=== PATIENT | male | born 1955 | race African-American/Black ===

== ENCOUNTER 2021-10-13 21:51 | Inpatient (IN) | payer MEDICARE, OTHER ==
[2021-10-13] MEDS ORDERED: ASPIRIN 81 MG CHEWABLE TABLETS PO ONE (23:23)
[2021-10-13 23:24] LABS: ALBUMIN 3.3 g/dl (3.4-5.0); CALCIUM 8.8 mg/dL (8.5-10.1)
[2021-10-13 23:26] LABS: BASO % 0.8 % (0-2.0); EOS % 0.8 % (0-4.5); HEMATOCRIT 39.1 % (35.4-49); HEMOGLOBIN 12.6 GM/dL (11.7-16.9); LYMPH % 25.7 % (8-40); MCH 22.1 pg (25.7-33.7); MCHC 32.3 g/dl (32.0-35.9); MEAN CELL VOLUME 68.6 fl (80-96); MONO % 6.3 % (3.8-10.2); NEUT % 66.4 % (42.8-82.8); RDW 19.8 % (11.9-15.9); WHITE BLOOD COUNT 8.7 K/mm3 (4.0-10.0)
[2021-10-13 23:27] LABS: INR 1.24 (0.83-1.09); PROTHROMBIN TIME (PATIENT) 14.3 SEC (9.7-13.0)
[2021-10-13 23:28] LABS: CREATININE 1.4 mg/dL (0.55-1.3)
[2021-10-13 23:29] LABS: ACTIVATED PTT 32.7 SECONDS (25.2-36.5); BILIRUBIN,TOTAL 0.4 mg/dL (0.2-1); TOT PROT 6.7 g/dl (6.4-8.2)
[2021-10-13] MEDS: SODIUM CHLORIDE 1,000 ML IV SCH (23:49)
[2021-10-13 23:51] LABS: LACTIC ACID 4.6 mmol/L (0.4-2.0)
[2021-10-13 23:54] LABS: ADD RBC MORPHOLOGY YES
[2021-10-13 23:56] LABS: PLATELET ESTIMATE NORMAL
[2021-10-14 00:10] LABS: ANISOCYTOSIS 1+; MACROCYTOSIS 0
[2021-10-14 01:02] LABS: MEAN PLT VOLUME 9.7 fl (7.5-11.1); PLATELET COUNT 156 10^3/uL (134-434)
[2021-10-14] MEDS: DEXTROSE 5%-0.45% SALINE 1,000 ML IV SCH ×2 (05:00→21:55)
[2021-10-14 05:28] LABS: EPI CELLS 6 /uL (0-25.1); HYALINE CASTS 1 /uL (0-3.1); PH,URINE 7.5 (5.0-8.0); URINE APPEARANCE CLEAR; URINE BACTERIA 0 /uL (0-1359); URINE BILIRUBIN NEGATIVE (NEGATIVE); URINE COLOR YELLOW; URINE GLUCOSE (UA) NEGATIVE (NEGATIVE); URINE KETONE NEGATIVE (NEGATIVE); URINE LEUK ESTERASE NEGATIVE (NEGATIVE); URINE NITRITE NEGATIVE (NEGATIVE); URINE PROTEIN TRACE (NEGATIVE); URINE RBC 4 /uL (0-23.9); URINE WBC 5 /uL (0-25.8)
[2021-10-14 06:28] LABS: ALBUMIN 3.2 g/dl (3.4-5.0); BLOOD UREA NITROGEN 17.8 mg/dL (7-18); CALCIUM 8.7 mg/dL (8.5-10.1)
[2021-10-14 06:31] LABS: CREATININE 1.2 mg/dL (0.55-1.3)
[2021-10-14 06:33] LABS: BILIRUBIN,TOTAL 0.4 mg/dL (0.2-1); TOT PROT 6.7 g/dl (6.4-8.2)
[2021-10-14 06:34] LABS: BASO % 0.8 % (0-2.0); EOS % 0.3 % (0-4.5); HEMATOCRIT 37.8 % (35.4-49); HEMOGLOBIN 12.4 GM/dL (11.7-16.9); LYMPH % 22.6 % (8-40); MCH 22.4 pg (25.7-33.7); MCHC 32.7 g/dl (32.0-35.9); MEAN CELL VOLUME 68.3 fl (80-96); MEAN PLT VOLUME 10.3 fl (7.5-11.1); MONO % 6.1 % (3.8-10.2); NEUT % 70.2 % (42.8-82.8); PLATELET COUNT 166 10^3/uL (134-434); RBC 5.54 M/mm3 (4.00-5.60); WHITE BLOOD COUNT 8.5 K/mm3 (4.0-10.0)
[2021-10-14] MEDS: ASPIRIN 81 MG CHEWABLE TABLETS PO SCH (10:35)
[2021-10-14] MEDS: HEPARIN NA (PORCINE) 5,000 UNITS/ML 1ML VIAL SQ SCH ×2 (10:35→21:57)
[2021-10-14 12:12] VITALS: BMI 25.5
[2021-10-14] MEDS: ATORVASTATIN CA 20 MG TABLET (FP) PO SCH (21:58)
[2021-10-15 07:43] LABS: BASO % 0.8 % (0-2.0); EOS % 2.6 % (0-4.5); HEMATOCRIT 39.3 % (35.4-49); HEMOGLOBIN 12.4 GM/dL (11.7-16.9); LYMPH % 30.8 % (8-40); MCH 21.9 pg (25.7-33.7); MCHC 31.5 g/dl (32.0-35.9); MEAN CELL VOLUME 69.7 fl (80-96); MEAN PLT VOLUME 10.8 fl (7.5-11.1); MONO % 8.5 % (3.8-10.2); NEUT % 57.3 % (42.8-82.8); PLATELET COUNT 165 10^3/uL (134-434); RBC 5.64 M/mm3 (4.00-5.60); RDW 20.9 % (11.9-15.9); WHITE BLOOD COUNT 8.6 K/mm3 (4.0-10.0)
[2021-10-15 08:08] LABS: BLOOD UREA NITROGEN 15.2 mg/dL (7-18); CALCIUM 8.8 mg/dL (8.5-10.1)
[2021-10-15 08:11] LABS: CREATININE 1.2 mg/dL (0.55-1.3)
[2021-10-15 08:12] LABS: TOT PROT 6.2 g/dl (6.4-8.2)
[2021-10-15 08:13] LABS: BILIRUBIN,TOTAL 0.3 mg/dL (0.2-1)
[2021-10-15] MEDS: ASPIRIN 81 MG CHEWABLE TABLETS PO SCH (09:59)
[2021-10-15] MEDS: HEPARIN NA (PORCINE) 5,000 UNITS/ML 1ML VIAL SQ SCH ×2 (10:00→21:24)
[2021-10-15] MEDS: DEXTROSE 5%-0.45% SALINE 1,000 ML IV SCH (10:01)
[2021-10-15] MEDS: SODIUM CHLORIDE 1,000 ML IV SCH (21:23)
[2021-10-15] MEDS: ATORVASTATIN CA 20 MG TABLET (FP) PO SCH (21:24)
[2021-10-16] MEDS: ASPIRIN 81 MG CHEWABLE TABLETS PO SCH (11:16)
[2021-10-16] MEDS: HEPARIN NA (PORCINE) 5,000 UNITS/ML 1ML VIAL SQ SCH (11:17)
[2021-10-16] MEDS: DEXTROSE 5%-0.45% SALINE 1,000 ML IV SCH (12:27)
[2021-10-16] MEDS: APIXABAN 5 MG TABLET PO SCH (22:21)
[2021-10-16] MEDS: ATORVASTATIN CA 20 MG TABLET (FP) PO SCH (22:21)
[2021-10-16] MEDS: SACUBITRIL/VALSARTAN 24 MG-26 MG TABLET PO SCH (22:21)
[2021-10-16] MEDS: SODIUM CHLORIDE 1,000 ML IV SCH (22:23)
[2021-10-17] MEDS: APIXABAN 5 MG TABLET PO SCH ×2 (10:30→22:32)
[2021-10-17] MEDS: SACUBITRIL/VALSARTAN 24 MG-26 MG TABLET PO SCH ×2 (10:44→22:32)
[2021-10-17] MEDS: metoPROLOL SUCCINATE 25 MG TAB.SR.24H (FP) PO SCH (10:44)
[2021-10-17] MEDS: ATORVASTATIN CA 20 MG TABLET (FP) PO SCH (22:32)
[2021-10-17] MEDS: SODIUM CHLORIDE 1,000 ML IV SCH (22:34)
[2021-10-18] MEDS: metoPROLOL SUCCINATE 25 MG TAB.SR.24H (FP) PO SCH (09:58)
[2021-10-18] MEDS: APIXABAN 5 MG TABLET PO SCH ×2 (09:59→22:03)
[2021-10-18] MEDS: SACUBITRIL/VALSARTAN 24 MG-26 MG TABLET PO SCH ×2 (09:59→22:03)
[2021-10-18] MEDS: SPIRONOLACTONE 25 MG TABLET PO SCH (12:04)
[2021-10-18] MEDS: SODIUM CHLORIDE 1,000 ML IV SCH (22:03)
[2021-10-18] MEDS: ATORVASTATIN CA 20 MG TABLET (FP) PO SCH (22:03)
[2021-10-19 09:33] LABS: BASO % 0.9 % (0-2.0); EOS % 5.3 % (0-4.5); HEMATOCRIT 39.8 % (35.4-49); HEMOGLOBIN 12.6 GM/dL (11.7-16.9); LYMPH % 29.7 % (8-40); MCH 21.9 pg (25.7-33.7); MCHC 31.6 g/dl (32.0-35.9); MEAN CELL VOLUME 69.3 fl (80-96); MEAN PLT VOLUME 10.8 fl (7.5-11.1); MONO % 6.9 % (3.8-10.2); NEUT % 57.2 % (42.8-82.8); PLATELET COUNT 192 10^3/uL (134-434); RBC 5.75 M/mm3 (4.00-5.60); RDW 20.6 % (11.9-15.9); WHITE BLOOD COUNT 8.5 K/mm3 (4.0-10.0)
[2021-10-19 09:57] LABS: CALCIUM 8.6 mg/dL (8.5-10.1)
[2021-10-19 09:58] LABS: BLOOD UREA NITROGEN 13.3 mg/dL (7-18)
[2021-10-19 10:01] LABS: CREATININE 1.1 mg/dL (0.55-1.3)
[2021-10-19 10:27] LABS: ANISOCYTOSIS 2+; MACROCYTOSIS 0; TARGET CELLS 2+
[2021-10-19] MEDS: SPIRONOLACTONE 25 MG TABLET PO SCH (10:37)
[2021-10-19] MEDS: metoPROLOL SUCCINATE 25 MG TAB.SR.24H (FP) PO SCH (10:37)
[2021-10-19] MEDS: APIXABAN 5 MG TABLET PO SCH (10:38)
[2021-10-19] MEDS: SACUBITRIL/VALSARTAN 24 MG-26 MG TABLET PO SCH (10:38)
[2021-10-19 14:16] VITALS: BP 116/77; PULSE 66; TEMP 98.5
== END 2021-10-19 14:17 | disposition home health service (06) | DRG 65 ==
LOC: JER 21:51 → JERBED 23:31 → J4W 10-14 06:47
PROVIDERS: ADMIT Internal Medicine; ATTEND Internal Medicine
DX: I63.89 Other cerebral infarction (principal); I69.354 Hemiplegia and hemiparesis following cerebral infarction affecting left non-dominant side; E87.2 Acidosis; I50.22 Chronic systolic (congestive) heart failure; N17.9 Acute kidney failure, unspecified; I69.351 Hemiplegia and hemiparesis following cerebral infarction affecting right dominant side; R29.714 NIHSS score 14; R41.82 Altered mental status, unspecified; E78.5 Hyperlipidemia, unspecified; I48.0 Paroxysmal atrial fibrillation; I25.119 Atherosclerotic heart disease of native coronary artery with unspecified angina pectoris; E11.9 Type 2 diabetes mellitus without complications; I11.0 Hypertensive heart disease with heart failure; F41.8 Other specified anxiety disorders; Z95.0 Presence of cardiac pacemaker
CPT/HCPCS: 0241U-QW; 36415; 70450-TC; 70496-TC; 70498-TC; 71045-TC-FY; 80048; 80053; 80061; 81003; 82550; 83036; 83605; 83880; 84443; 84484; 85025; 85610; 85730; 86850; 86900; 86901; 87086; 93005; 93010; 93306-TC; 93880-TC; 97116-GP; 97161-GP; 99291; J1644

== ENCOUNTER 2022-04-26 07:53 | Inpatient (IN) | payer MEDICARE, OTHER ==
[2022-04-26] MEDS ORDERED: SODIUM CHLORIDE 1,000 ML IV SCH (08:00)
[2022-04-26] MEDS ORDERED: LABETALOL HCL 5 MG/1 ML (100MG/20 ML VIAL) ONE (08:26)
[2022-04-26] MEDS ORDERED: LABETALOL HCL 5 MG/1 ML (100MG/20 ML VIAL) IVPUSH ONE (08:34)
[2022-04-26 09:20] LABS: BASO % 0.5 % (0-2.0); HEMATOCRIT 45.7 % (35.4-49); HEMOGLOBIN 14.6 GM/dL (11.7-16.9); LYMPH % 39.6 % (8-40); MEAN CELL VOLUME 75.1 fl (80-96); MEAN PLT VOLUME 10.5 fl (7.5-11.1); MONO % 8.9 % (3.8-10.2); PLATELET COUNT 229 10^3/uL (134-434); RBC 6.08 M/mm3 (4.00-5.60); RDW 16.7 % (11.9-15.9); WHITE BLOOD COUNT 9.5 K/mm3 (4.0-10.0)
[2022-04-26 09:27] LABS: INR 1.14 (0.83-1.09); PROTHROMBIN TIME (PATIENT) 13.1 SEC (9.7-13.0)
[2022-04-26] MEDS ORDERED: ASPIRIN 300 MG SUPP.RECT PR ONE (09:28)
[2022-04-26] MEDS ORDERED: ASPIRIN 300 MG SUPP.RECT RC ONE (09:30)
[2022-04-26 09:49] LABS: CHLORIDE 109 mmol/L (98-107); SODIUM 140 mmol/L (136-145)
[2022-04-26 09:53] LABS: ALBUMIN 3.5 g/dl (3.4-5.0); CALCIUM 9.1 mg/dL (8.5-10.1); CO2 20 mmol/L (21-32)
[2022-04-26 09:56] LABS: CREATININE 1.7 mg/dL (0.55-1.3)
[2022-04-26 09:57] LABS: SGOT/AST 61 U/L (15-37); SGPT/ALT 22 U/L (13-61)
[2022-04-26 09:58] LABS: TOT PROT 7.2 g/dl (6.4-8.2)
[2022-04-26] MEDS ORDERED: SODIUM CHLORIDE 500 ML IV STA (10:06)
[2022-04-26 10:37] LABS: URINE APPEARANCE CLEAR; URINE BILIRUBIN NEGATIVE (NEGATIVE); URINE COLOR YELLOW; URINE GLUCOSE (UA) NEGATIVE (NEGATIVE); URINE KETONE TRACE (NEGATIVE)
[2022-04-26 10:38] LABS: PH,URINE 5.5 (5.0-8.0)
[2022-04-26 10:39] LABS: URINE LEUK ESTERASE NEGATIVE (NEGATIVE); URINE NITRITE NEGATIVE (NEGATIVE); URINE PROTEIN 2+ (NEGATIVE); URINE RBC 24 /uL (0-23.9); URINE UROBILINOGEN 0.2 mg/dL (0.2-1.0)
[2022-04-26 10:40] LABS: EPI CELLS 24 /uL (0-25.1); HYALINE CASTS 1 /uL (0-3.1); URINE BACTERIA 70 /uL (0-1359); URINE WBC 14 /uL (0-25.8)
[2022-04-26 11:36] LABS: ALK PHOS 72 U/L (45-117); BILIRUBIN,TOTAL 0.9 mg/dL (0.2-1); BLOOD UREA NITROGEN 20.5 mg/dL (7-18); CHOLESTEROL 137 mg/dL (50-200); GLUCOSE,RANDOM 147 mg/dL (74-106); HDL CHOLESTEROL 37 mg/dL (40-60); LDL CHOLESTEROL (ONLY SJRH) 87 mg/dL (5-100); TRIGLYCERIDES 109 mg/dL (0-150)
[2022-04-26 11:37] LABS: ANION GAP 11 MMOL/L (8-16)
[2022-04-26 12:45] LABS: CALCIUM 9.2 mg/dL (8.5-10.1)
[2022-04-26 12:50] LABS: CREATININE 1.6 mg/dL (0.55-1.3)
[2022-04-26] MEDS ORDERED: ACETAMINOPHEN 1000 MG/100 ML BAG IVPB ONE (16:30)
[2022-04-26] MEDS ORDERED: ACETAMINOPHEN INJECTION 100 ML IVPB ONE (16:33)
[2022-04-26] MEDS ORDERED: ALBUTEROL SO4 2.5/IPRATROPIUM 0.5 INH SOL 3 ML VIAL.NEB. NEB ONE ×2 (16:34→16:37)
[2022-04-26] MEDS ORDERED: METOPROLOL TARTRATE 5 MG/5 ML VIAL IVPUSH ONE (16:36)
[2022-04-26] MEDS ORDERED: METOPROLOL TARTRATE 5 MG/5 ML VIAL ONE (16:37)
[2022-04-26] MEDS ORDERED: ENOXAPARIN NA (PORCINE) 80 MG/0.8 ML DISP.SYRIN SQ ONE (18:02)
[2022-04-26] MEDS: DEXTROSE 5%-0.45% SALINE 1,000 ML IV SCH (18:12)
[2022-04-26] MEDS: ENOXAPARIN NA (PORCINE) 80 MG/0.8 ML DISP.SYRIN SQ SCH (18:12)
[2022-04-26] MEDS: PANTOPRAZOLE SODIUM 40 MG VIAL IVPUSH SCH (23:00)
[2022-04-27] MEDS ORDERED: PANTOPRAZOLE SODIUM 40 MG VIAL ONE ×2 (01:43→10:01)
[2022-04-27] MEDS ORDERED: metoPROLOL SUCCINATE 25 MG TAB.SR.24H (FP) PO ONE ×2 (08:30→08:56)
[2022-04-27] MEDS ORDERED: ENOXAPARIN NA (PORCINE) 80 MG/0.8 ML DISP.SYRIN SQ ONE (08:53)
[2022-04-27 09:39] LABS: BASO % 0.4 % (0-2.0); EOS % 0.2 % (0-4.5); HEMATOCRIT 44.5 % (35.4-49); HEMOGLOBIN 14.4 GM/dL (11.7-16.9); LYMPH % 18.9 % (8-40); MCH 24.2 pg (25.7-33.7); MCHC 32.3 g/dl (32.0-35.9); MEAN CELL VOLUME 75.1 fl (80-96); MEAN PLT VOLUME 10.7 fl (7.5-11.1); MONO % 11.2 % (3.8-10.2); NEUT % 69.3 % (42.8-82.8); PLATELET COUNT 219 10^3/uL (134-434); RBC 5.93 M/mm3 (4.00-5.60); RDW 16.4 % (11.9-15.9); WHITE BLOOD COUNT 13.8 K/mm3 (4.0-10.0)
[2022-04-27 09:59] LABS: ALBUMIN 3.6 g/dl (3.4-5.0); BLOOD UREA NITROGEN 19.5 mg/dL (7-18)
[2022-04-27 10:01] LABS: CALCIUM 9.1 mg/dL (8.5-10.1)
[2022-04-27 10:02] LABS: CREATININE 1.4 mg/dL (0.55-1.3)
[2022-04-27] MEDS ORDERED: ASPIRIN 300 MG SUPP.RECT RC ONE (10:02)
[2022-04-27 10:04] LABS: TOT PROT 6.9 g/dl (6.4-8.2)
[2022-04-27 10:05] LABS: BILIRUBIN,TOTAL 1.1 mg/dL (0.2-1)
[2022-04-27] MEDS: ENOXAPARIN NA (PORCINE) 80 MG/0.8 ML DISP.SYRIN SQ SCH ×2 (10:14→17:12)
[2022-04-27] MEDS: PANTOPRAZOLE SODIUM 40 MG VIAL IVPUSH SCH ×2 (10:15→21:40)
[2022-04-27] MEDS: ASPIRIN 300 MG SUPP.RECT RC SCH (10:15)
[2022-04-27] MEDS ORDERED: METOPROLOL TARTRATE 5 MG/5 ML VIAL IVPUSH ONE (15:49)
[2022-04-27] MEDS: ENALAPRILAT DIHYDRATE 1.25 MG/1 ML VIAL IVPB SCH (17:37)
[2022-04-27] MEDS: METOPROLOL TARTRATE 5 MG/5 ML VIAL IVPUSH SCH (21:37)
[2022-04-28] MEDS: ENALAPRILAT DIHYDRATE 1.25 MG/1 ML VIAL IVPB SCH ×4 (01:39→17:12)
[2022-04-28] MEDS: METOPROLOL TARTRATE 5 MG/5 ML VIAL IVPUSH SCH ×6 (01:41→21:10)
[2022-04-28] MEDS: ENOXAPARIN NA (PORCINE) 80 MG/0.8 ML DISP.SYRIN SQ SCH ×2 (06:45→17:13)
[2022-04-28 08:28] LABS: BASO % 0.5 % (0-2.0); EOS % 0.6 % (0-4.5); HEMATOCRIT 42.4 % (35.4-49); HEMOGLOBIN 13.5 GM/dL (11.7-16.9); LYMPH % 23.2 % (8-40); MCH 23.6 pg (25.7-33.7); MCHC 31.9 g/dl (32.0-35.9); MEAN CELL VOLUME 74.1 fl (80-96); MEAN PLT VOLUME 10.7 fl (7.5-11.1); NEUT % 62.7 % (42.8-82.8); PLATELET COUNT 190 10^3/uL (134-434); RBC 5.72 M/mm3 (4.00-5.60); RDW 16.7 % (11.9-15.9); WHITE BLOOD COUNT 12.9 K/mm3 (4.0-10.0)
[2022-04-28 08:48] LABS: CHLORIDE 110 mmol/L (98-107); SODIUM 139 mmol/L (136-145)
[2022-04-28 08:55] LABS: BLOOD UREA NITROGEN 24.7 mg/dL (7-18); CALCIUM 8.6 mg/dL (8.5-10.1); CO2 21 mmol/L (21-32); GLUCOSE,RANDOM 114 mg/dL (74-106)
[2022-04-28 08:59] LABS: ANION GAP 8 MMOL/L (8-16); CREATININE 1.5 mg/dL (0.55-1.3)
[2022-04-28] MEDS: DEXTROSE 5%-0.45% SALINE 1,000 ML IV SCH (09:24)
[2022-04-28] MEDS: PANTOPRAZOLE SODIUM 40 MG VIAL IVPUSH SCH ×2 (09:25→21:16)
[2022-04-28] MEDS: ASPIRIN 300 MG SUPP.RECT RC SCH (09:25)
[2022-04-28] MEDS ORDERED: metoPROLOL SUCCINATE 25 MG TAB.SR.24H (FP) PO SCH (10:00)
[2022-04-28] MEDS: AMINO ACIDS 4.25%/D5W 1,000 ML IV SCH (12:16)
[2022-04-28 13:32] LABS: ALBUMIN 3.4 g/dl (3.4-5.0); BLOOD UREA NITROGEN 23.8 mg/dL (7-18)
[2022-04-28 13:34] LABS: CREATININE 1.5 mg/dL (0.55-1.3)
[2022-04-28 13:36] LABS: TOT PROT 6.6 g/dl (6.4-8.2)
[2022-04-28 13:48] LABS: CALCIUM 9.1 mg/dL (8.5-10.1)
[2022-04-29] MEDS: ENALAPRILAT DIHYDRATE 1.25 MG/1 ML VIAL IVPB SCH ×4 (05:44→16:10)
[2022-04-29] MEDS: METOPROLOL TARTRATE 5 MG/5 ML VIAL IVPUSH SCH ×5 (05:47→22:28)
[2022-04-29] MEDS: ENOXAPARIN NA (PORCINE) 80 MG/0.8 ML DISP.SYRIN SQ SCH ×2 (05:50→17:20)
[2022-04-29 08:18] LABS: BASO % 0.7 % (0-2.0); HEMATOCRIT 44.6 % (35.4-49); HEMOGLOBIN 14.2 GM/dL (11.7-16.9); LYMPH % 20.9 % (8-40); MCH 23.8 pg (25.7-33.7); MCHC 31.9 g/dl (32.0-35.9); MEAN CELL VOLUME 74.6 fl (80-96); MEAN PLT VOLUME 10.2 fl (7.5-11.1); MONO % 11.6 % (3.8-10.2); NEUT % 64.8 % (42.8-82.8); PLATELET COUNT 192 10^3/uL (134-434); RBC 5.98 M/mm3 (4.00-5.60); RDW 16.4 % (11.9-15.9); WHITE BLOOD COUNT 11.5 K/mm3 (4.0-10.0)
[2022-04-29 08:41] LABS: BLOOD UREA NITROGEN 28.4 mg/dL (7-18); CALCIUM 9.1 mg/dL (8.5-10.1)
[2022-04-29 08:42] LABS: ALBUMIN 3.2 g/dl (3.4-5.0)
[2022-04-29 08:44] LABS: CREATININE 1.5 mg/dL (0.55-1.3)
[2022-04-29 08:46] LABS: BILIRUBIN,TOTAL 0.9 mg/dL (0.2-1); TOT PROT 6.3 g/dl (6.4-8.2)
[2022-04-29] MEDS: ASPIRIN 300 MG SUPP.RECT RC SCH (09:17)
[2022-04-29] MEDS: PANTOPRAZOLE SODIUM 40 MG VIAL IVPUSH SCH ×2 (09:17→22:30)
[2022-04-29] MEDS: AMINO ACIDS 4.25%/D5W 1,000 ML IV SCH (11:26)
[2022-04-29] MEDS ORDERED: BISACODYL 10 MG SUPP.RECT PR ONE (14:45)
[2022-04-30] MEDS: ENALAPRILAT DIHYDRATE 1.25 MG/1 ML VIAL IVPB SCH ×5 (04:55→22:28)
[2022-04-30] MEDS: METOPROLOL TARTRATE 5 MG/5 ML VIAL IVPUSH SCH ×6 (04:57→19:58)
[2022-04-30] MEDS: ENOXAPARIN NA (PORCINE) 80 MG/0.8 ML DISP.SYRIN SQ SCH ×2 (05:03→16:59)
[2022-04-30] MEDS: ASPIRIN 300 MG SUPP.RECT RC SCH ×2 (10:14→21:03)
[2022-04-30] MEDS: PANTOPRAZOLE SODIUM 40 MG VIAL IVPUSH SCH ×2 (10:14→21:03)
[2022-04-30] MEDS: AMINO ACIDS 4.25%/D5W 1,000 ML IV SCH (11:49)
[2022-04-30] MEDS: DEXTROSE 5%-0.45% SALINE 1,000 ML IV SCH (20:51)
[2022-04-30] MEDS: ACETAMINOPHEN 1000 MG/100 ML BAG IVPB PRN (21:03)
[2022-05-01] MEDS: METOPROLOL TARTRATE 5 MG/5 ML VIAL IVPUSH SCH ×6 (00:14→21:53)
[2022-05-01] MEDS: ENALAPRILAT DIHYDRATE 1.25 MG/1 ML VIAL IVPB SCH ×4 (05:13→23:30)
[2022-05-01] MEDS: ENOXAPARIN NA (PORCINE) 80 MG/0.8 ML DISP.SYRIN SQ SCH ×2 (05:13→17:20)
[2022-05-01] MEDS: AMINO ACIDS 4.25%/D5W 1,000 ML IV SCH ×2 (06:37→11:45)
[2022-05-01] MEDS: ACETAMINOPHEN 1000 MG/100 ML BAG IVPB PRN (06:38)
[2022-05-01 08:11] LABS: HEMATOCRIT 40.6 % (35.4-49); MCH 23.9 pg (25.7-33.7); MEAN CELL VOLUME 74.8 fl (80-96); MEAN PLT VOLUME 10.8 fl (7.5-11.1); PLATELET COUNT 200 10^3/uL (134-434); RBC 5.42 M/mm3 (4.00-5.60); RDW 16.2 % (11.9-15.9); WHITE BLOOD COUNT 14.8 K/mm3 (4.0-10.0)
[2022-05-01 08:25] LABS: CALCIUM 8.8 mg/dL (8.5-10.1)
[2022-05-01 08:26] LABS: ALBUMIN 2.9 g/dl (3.4-5.0)
[2022-05-01 08:29] LABS: CREATININE 1.1 mg/dL (0.55-1.3)
[2022-05-01 08:30] LABS: BILIRUBIN,TOTAL 0.9 mg/dL (0.2-1); TOT PROT 6.1 g/dl (6.4-8.2)
[2022-05-01 08:34] LABS: BLOOD UREA NITROGEN 27.8 mg/dL (7-18)
[2022-05-01] MEDS: ASPIRIN 300 MG SUPP.RECT RC SCH (09:15)
[2022-05-01] MEDS: PANTOPRAZOLE SODIUM 40 MG VIAL IVPUSH SCH (09:15)
[2022-05-01 11:13] LABS: ANISOCYTOSIS 0; HELMET CELLS 0; HOWELL-JOLLY BODIES 0; MACROCYTOSIS 0; OVALOCYTE 0; ROULEAU 0; SICKELED CELLS 0; TARGET CELLS 0; TEAR DROP CELLS 0; TOXIC GRANULATION 0
[2022-05-02] MEDS: METOPROLOL TARTRATE 5 MG/5 ML VIAL IVPUSH SCH ×6 (01:26→20:34)
[2022-05-02] MEDS: ENOXAPARIN NA (PORCINE) 80 MG/0.8 ML DISP.SYRIN SQ SCH ×2 (06:24→18:58)
[2022-05-02] MEDS: ENALAPRILAT DIHYDRATE 1.25 MG/1 ML VIAL IVPB SCH ×4 (06:24→23:00)
[2022-05-02 08:15] LABS: BASO % 0.6 % (0-2.0); EOS % 1.4 % (0-4.5); HEMOGLOBIN 12.7 GM/dL (11.7-16.9); MCH 24.2 pg (25.7-33.7); MCHC 32.5 g/dl (32.0-35.9); MEAN CELL VOLUME 74.5 fl (80-96); MEAN PLT VOLUME 10.6 fl (7.5-11.1); MONO % 13.1 % (3.8-10.2); NEUT % 70.9 % (42.8-82.8); PLATELET COUNT 195 10^3/uL (134-434); RBC 5.23 M/mm3 (4.00-5.60); RDW 16.4 % (11.9-15.9); WHITE BLOOD COUNT 13.1 K/mm3 (4.0-10.0)
[2022-05-02 08:27] LABS: ALBUMIN 2.7 g/dl (3.4-5.0); BLOOD UREA NITROGEN 24.5 mg/dL (7-18); CALCIUM 8.6 mg/dL (8.5-10.1)
[2022-05-02 08:30] LABS: CREATININE 1.2 mg/dL (0.55-1.3)
[2022-05-02 08:32] LABS: BILIRUBIN,TOTAL 0.6 mg/dL (0.2-1); TOT PROT 5.9 g/dl (6.4-8.2)
[2022-05-02] MEDS: PANTOPRAZOLE SODIUM 40 MG VIAL IVPUSH SCH (10:12)
[2022-05-02] MEDS: ASPIRIN 300 MG SUPP.RECT RC SCH (10:12)
[2022-05-02] MEDS: AMINO ACIDS 4.25%/D5W 1,000 ML IV SCH ×2 (10:13→12:51)
[2022-05-02] MEDS: POTASSIUM CHLORIDE 20 MEQ in AMINO ACIDS 4.25%/D5W 1,000 ML IV SCH (18:02)
[2022-05-03] MEDS: METOPROLOL TARTRATE 5 MG/5 ML VIAL IVPUSH SCH ×7 (00:19→23:42)
[2022-05-03] MEDS: POTASSIUM CHLORIDE 20 MEQ in AMINO ACIDS 4.25%/D5W 1,000 ML IV SCH ×3 (03:30→15:30)
[2022-05-03] MEDS: ENALAPRILAT DIHYDRATE 1.25 MG/1 ML VIAL IVPB SCH ×4 (05:36→23:14)
[2022-05-03] MEDS: ENOXAPARIN NA (PORCINE) 80 MG/0.8 ML DISP.SYRIN SQ SCH ×2 (06:00→23:15)
[2022-05-03 08:43] LABS: BASO % 0.7 % (0-2.0); EOS % 0.6 % (0-4.5); HEMATOCRIT 39.5 % (35.4-49); HEMOGLOBIN 12.6 GM/dL (11.7-16.9); LYMPH % 14.2 % (8-40); MCH 23.7 pg (25.7-33.7); MCHC 31.8 g/dl (32.0-35.9); MEAN CELL VOLUME 74.6 fl (80-96); MONO % 11.2 % (3.8-10.2); NEUT % 73.3 % (42.8-82.8); PLATELET COUNT 217 10^3/uL (134-434); RDW 16.5 % (11.9-15.9); WHITE BLOOD COUNT 14.4 K/mm3 (4.0-10.0)
[2022-05-03 09:09] LABS: ALBUMIN 2.6 g/dl (3.4-5.0); BLOOD UREA NITROGEN 24.8 mg/dL (7-18); CALCIUM 8.6 mg/dL (8.5-10.1)
[2022-05-03 09:12] LABS: CREATININE 1.1 mg/dL (0.55-1.3)
[2022-05-03 09:14] LABS: BILIRUBIN,TOTAL 0.6 mg/dL (0.2-1); TOT PROT 6.1 g/dl (6.4-8.2)
[2022-05-03 09:28] LABS: MAGNESIUM 1.8 mg/dL (1.8-2.4)
[2022-05-03] MEDS: PANTOPRAZOLE SODIUM 40 MG VIAL IVPUSH SCH (09:31)
[2022-05-03] MEDS: ACETAMINOPHEN 1000 MG/100 ML BAG IVPB PRN (09:31)
[2022-05-03] MEDS ORDERED: POTASSIUM PHOSPHATE 30 MM in SODIUM CHLORIDE 500 ML IVPB ONE (13:30)
[2022-05-03 14:30] VITALS: BMI 25.9
[2022-05-03] MEDS: PIPERACILLIN/TAZOB 3.375 GM 3.375 GM in DEXTROSE 5%-WATER - 50 ML IVPB SCH ×2 (14:32→19:10)
[2022-05-03] MEDS ORDERED: BISACODYL 10 MG SUPP.RECT PR ONE ×2 (18:56→22:45)
[2022-05-04] MEDS: PIPERACILLIN/TAZOB 3.375 GM 3.375 GM in DEXTROSE 5%-WATER - 50 ML IVPB SCH ×3 (01:03→17:46)
[2022-05-04] MEDS: POTASSIUM CHLORIDE 20 MEQ in AMINO ACIDS 4.25%/D5W 1,000 ML IV SCH ×3 (02:00→14:30)
[2022-05-04] MEDS: METOPROLOL TARTRATE 5 MG/5 ML VIAL IVPUSH SCH ×5 (03:59→21:55)
[2022-05-04] MEDS: ENALAPRILAT DIHYDRATE 1.25 MG/1 ML VIAL IVPB SCH ×4 (04:15→23:30)
[2022-05-04 07:57] LABS: BASO % 0.7 % (0-2.0); EOS % 0.7 % (0-4.5); HEMATOCRIT 38.5 % (35.4-49); HEMOGLOBIN 12.5 GM/dL (11.7-16.9); MCHC 32.4 g/dl (32.0-35.9); MEAN CELL VOLUME 73.9 fl (80-96); MEAN PLT VOLUME 10.4 fl (7.5-11.1); MONO % 12.3 % (3.8-10.2); NEUT % 71.3 % (42.8-82.8); PLATELET COUNT 200 10^3/uL (134-434); RBC 5.21 M/mm3 (4.00-5.60); RDW 16.3 % (11.9-15.9); WHITE BLOOD COUNT 12.6 K/mm3 (4.0-10.0)
[2022-05-04 08:32] LABS: ALBUMIN 2.4 g/dl (3.4-5.0); BLOOD UREA NITROGEN 25.9 mg/dL (7-18); CALCIUM 8.7 mg/dL (8.5-10.1)
[2022-05-04 08:36] LABS: BILIRUBIN,TOTAL 0.7 mg/dL (0.2-1); TOT PROT 5.6 g/dl (6.4-8.2)
[2022-05-04] MEDS: PANTOPRAZOLE SODIUM 40 MG VIAL IVPUSH SCH (09:12)
[2022-05-04] MEDS: ENOXAPARIN NA (PORCINE) 80 MG/0.8 ML DISP.SYRIN SQ SCH ×2 (10:59→22:00)
[2022-05-04] MEDS: ACETAMINOPHEN 1000 MG/100 ML BAG IVPB PRN (16:25)
[2022-05-05] MEDS: PIPERACILLIN/TAZOB 3.375 GM 3.375 GM in DEXTROSE 5%-WATER - 50 ML IVPB SCH ×3 (01:14→17:02)
[2022-05-05] MEDS: METOPROLOL TARTRATE 5 MG/5 ML VIAL IVPUSH SCH ×6 (01:17→20:45)
[2022-05-05] MEDS: POTASSIUM CHLORIDE 20 MEQ in AMINO ACIDS 4.25%/D5W 1,000 ML IV SCH ×3 (04:59→22:10)
[2022-05-05] MEDS: ENALAPRILAT DIHYDRATE 1.25 MG/1 ML VIAL IVPB SCH ×4 (05:00→22:45)
[2022-05-05 08:33] LABS: EOS % 1.8 % (0-4.5); HEMATOCRIT 37.5 % (35.4-49); HEMOGLOBIN 12.2 GM/dL (11.7-16.9); LYMPH % 17.5 % (8-40); MCH 24.1 pg (25.7-33.7); MCHC 32.5 g/dl (32.0-35.9); MEAN PLT VOLUME 10.8 fl (7.5-11.1); MONO % 12.4 % (3.8-10.2); NEUT % 67.3 % (42.8-82.8); PLATELET COUNT 210 10^3/uL (134-434); RBC 5.07 M/mm3 (4.00-5.60); RDW 16.3 % (11.9-15.9); WHITE BLOOD COUNT 8.5 K/mm3 (4.0-10.0)
[2022-05-05 08:56] LABS: MAGNESIUM 1.8 mg/dL (1.8-2.4)
[2022-05-05 08:57] LABS: TOT PROT 5.4 g/dl (6.4-8.2)
[2022-05-05 08:58] LABS: BLOOD UREA NITROGEN 25.5 mg/dL (7-18)
[2022-05-05 08:59] LABS: ALBUMIN 2.3 g/dl (3.4-5.0)
[2022-05-05 09:02] LABS: PHOSPHOROUS 2.5 mg/dL (2.5-4.9)
[2022-05-05 09:03] LABS: BILIRUBIN,TOTAL 0.4 mg/dL (0.2-1)
[2022-05-05] MEDS: PANTOPRAZOLE SODIUM 40 MG VIAL IVPUSH SCH (09:11)
[2022-05-05] MEDS: ENOXAPARIN NA (PORCINE) 80 MG/0.8 ML DISP.SYRIN SQ SCH ×2 (10:41→23:16)
[2022-05-05] MEDS ORDERED: FAT EMULSION/OLIVE/SOY (CLINOLIPID) 250 ML EMULSION IV SCH (22:00)
[2022-05-05] MEDS: FAT EMULSION/OLIVE/SOY/PHOSPHO 250 ML IV SCH (23:15)
[2022-05-06] MEDS: METOPROLOL TARTRATE 5 MG/5 ML VIAL IVPUSH SCH ×6 (00:41→20:14)
[2022-05-06] MEDS: PIPERACILLIN/TAZOB 3.375 GM 3.375 GM in DEXTROSE 5%-WATER - 50 ML IVPB SCH ×3 (02:25→18:12)
[2022-05-06] MEDS: ENALAPRILAT DIHYDRATE 1.25 MG/1 ML VIAL IVPB SCH ×4 (04:34→22:47)
[2022-05-06] MEDS: PANTOPRAZOLE SODIUM 40 MG VIAL IVPUSH SCH (09:57)
[2022-05-06] MEDS: ENOXAPARIN NA (PORCINE) 80 MG/0.8 ML DISP.SYRIN SQ SCH (11:29)
[2022-05-06 12:13] LABS: BASO % 1.2 % (0-2.0); EOS % 2.3 % (0-4.5); LYMPH % 24.1 % (8-40); MCH 23.9 pg (25.7-33.7); MCHC 31.7 g/dl (32.0-35.9); MEAN CELL VOLUME 75.3 fl (80-96); MEAN PLT VOLUME 9.8 fl (7.5-11.1); MONO % 16.9 % (3.8-10.2); NEUT % 55.5 % (42.8-82.8); PLATELET COUNT 237 10^3/uL (134-434); RBC 5.45 M/mm3 (4.00-5.60); RDW 16.4 % (11.9-15.9); WHITE BLOOD COUNT 10.9 K/mm3 (4.0-10.0)
[2022-05-06 12:56] LABS: ALBUMIN 2.5 g/dl (3.4-5.0); BLOOD UREA NITROGEN 24.7 mg/dL (7-18); CALCIUM 8.5 mg/dL (8.5-10.1)
[2022-05-06 13:01] LABS: BILIRUBIN,TOTAL 0.3 mg/dL (0.2-1); TOT PROT 5.9 g/dl (6.4-8.2)
[2022-05-06] MEDS: POTASSIUM CHLORIDE 20 MEQ in AMINO ACIDS 4.25%/D5W 1,000 ML IV SCH (15:27)
[2022-05-06] MEDS: FAT EMULSION/OLIVE/SOY/PHOSPHO 250 ML IV SCH (22:46)
[2022-05-07] MEDS: METOPROLOL TARTRATE 5 MG/5 ML VIAL IVPUSH SCH ×6 (00:34→21:08)
[2022-05-07] MEDS: PIPERACILLIN/TAZOB 3.375 GM 3.375 GM in DEXTROSE 5%-WATER - 50 ML IVPB SCH ×3 (02:00→17:30)
[2022-05-07] MEDS: ENALAPRILAT DIHYDRATE 1.25 MG/1 ML VIAL IVPB SCH ×4 (05:05→23:58)
[2022-05-07] MEDS: POTASSIUM CHLORIDE 20 MEQ in AMINO ACIDS 4.25%/D5W 1,000 ML IV SCH (05:30)
[2022-05-07 08:19] LABS: BASO % 0.8 % (0-2.0); EOS % 2.1 % (0-4.5); HEMATOCRIT 37.4 % (35.4-49); HEMOGLOBIN 12.1 GM/dL (11.7-16.9); LYMPH % 20.4 % (8-40); MCH 23.9 pg (25.7-33.7); MCHC 32.3 g/dl (32.0-35.9); MEAN CELL VOLUME 73.8 fl (80-96); MEAN PLT VOLUME 10.4 fl (7.5-11.1); NEUT % 62.7 % (42.8-82.8); PLATELET COUNT 224 10^3/uL (134-434); RBC 5.07 M/mm3 (4.00-5.60); RDW 16.6 % (11.9-15.9); WHITE BLOOD COUNT 9.9 K/mm3 (4.0-10.0)
[2022-05-07 08:25] LABS: CALCIUM 8.1 mg/dL (8.5-10.1)
[2022-05-07 08:26] LABS: ALBUMIN 2.4 g/dl (3.4-5.0); BLOOD UREA NITROGEN 20.2 mg/dL (7-18)
[2022-05-07 08:31] LABS: BILIRUBIN,TOTAL 0.2 mg/dL (0.2-1); TOT PROT 5.5 g/dl (6.4-8.2)
[2022-05-07] MEDS: ACETAMINOPHEN 1000 MG/100 ML BAG IVPB PRN ×2 (08:32→18:31)
[2022-05-07] MEDS: PANTOPRAZOLE SODIUM 40 MG VIAL IVPUSH SCH (09:49)
[2022-05-08] MEDS: FAT EMULSION/OLIVE/SOY/PHOSPHO 250 ML IV SCH ×2 (00:30→23:23)
[2022-05-08] MEDS: METOPROLOL TARTRATE 5 MG/5 ML VIAL IVPUSH SCH ×6 (01:40→20:20)
[2022-05-08] MEDS: PIPERACILLIN/TAZOB 3.375 GM 3.375 GM in DEXTROSE 5%-WATER - 50 ML IVPB SCH ×3 (01:45→17:58)
[2022-05-08] MEDS: ENALAPRILAT DIHYDRATE 1.25 MG/1 ML VIAL IVPB SCH ×4 (05:22→23:26)
[2022-05-08] MEDS: POTASSIUM CHLORIDE 20 MEQ in AMINO ACIDS 4.25%/D5W 1,000 ML IV SCH (05:24)
[2022-05-08] MEDS ORDERED: FENTANYL CITRATE/PF 50 MCG/ML VIAL ONE ×2 (09:47→10:51)
[2022-05-08] MEDS ORDERED: GLUCAGON 1 MG KIT ONE (09:47)
[2022-05-08] MEDS: PANTOPRAZOLE SODIUM 40 MG VIAL IVPUSH SCH (10:00)
[2022-05-08] MEDS ORDERED: GLUCAGON 1 MG KIT IVPUSH ONE (10:29)
[2022-05-08] MEDS ORDERED: FENTANYL CITRATE/PF 50 MCG/ML VIAL IVPUSH ONE ×2 (10:31→10:53)
[2022-05-08] MEDS ORDERED: MIDAZOLAM HCL 2 MG/2 ML SINGLE DOSE VIAL IVPUSH ONE ×2 (10:55→11:11)
[2022-05-08] MEDS ORDERED: MIDAZOLAM HCL 2 MG/2 ML SINGLE DOSE VIAL ONE (10:55)
[2022-05-08] MEDS: ACETAMINOPHEN 1000 MG/100 ML BAG IVPB PRN (16:05)
[2022-05-09] MEDS: METOPROLOL TARTRATE 5 MG/5 ML VIAL IVPUSH SCH ×6 (00:07→22:34)
[2022-05-09] MEDS: PIPERACILLIN/TAZOB 3.375 GM 3.375 GM in DEXTROSE 5%-WATER - 50 ML IVPB SCH ×3 (03:12→18:43)
[2022-05-09] MEDS: ENALAPRILAT DIHYDRATE 1.25 MG/1 ML VIAL IVPB SCH ×4 (05:48→22:45)
[2022-05-09] MEDS: POTASSIUM CHLORIDE 20 MEQ in AMINO ACIDS 4.25%/D5W 1,000 ML IV SCH (05:48)
[2022-05-09 08:04] LABS: EOS % 2.6 % (0-4.5); HEMATOCRIT 34.8 % (35.4-49); HEMOGLOBIN 11.5 GM/dL (11.7-16.9); LYMPH % 21.6 % (8-40); MCH 23.9 pg (25.7-33.7); MCHC 33.1 g/dl (32.0-35.9); MEAN CELL VOLUME 72.3 fl (80-96); MEAN PLT VOLUME 11.4 fl (7.5-11.1); MONO % 9.8 % (3.8-10.2); PLATELET COUNT 251 10^3/uL (134-434); RBC 4.82 M/mm3 (4.00-5.60); RDW 16.1 % (11.9-15.9); WHITE BLOOD COUNT 11.3 K/mm3 (4.0-10.0)
[2022-05-09 08:41] LABS: CALCIUM 8.2 mg/dL (8.5-10.1); MAGNESIUM 1.8 mg/dL (1.8-2.4)
[2022-05-09 08:42] LABS: CREATININE 0.9 mg/dL (0.55-1.3)
[2022-05-09 08:44] LABS: ALBUMIN 2.3 g/dl (3.4-5.0); BLOOD UREA NITROGEN 14.7 mg/dL (7-18); TOT PROT 5.6 g/dl (6.4-8.2)
[2022-05-09 08:47] LABS: PHOSPHOROUS 2.3 mg/dL (2.5-4.9)
[2022-05-09 08:49] LABS: BILIRUBIN,TOTAL 0.3 mg/dL (0.2-1)
[2022-05-09] MEDS: ENOXAPARIN NA (PORCINE) 80 MG/0.8 ML DISP.SYRIN SQ SCH ×2 (09:07→22:49)
[2022-05-09] MEDS: PANTOPRAZOLE SODIUM 40 MG VIAL IVPUSH SCH (09:50)
[2022-05-09] MEDS ORDERED: POTASSIUM PHOSPHATE 15 MM in SODIUM CHLORIDE 250 ML IVPB ONE (14:00)
[2022-05-09] MEDS: FAT EMULSION/OLIVE/SOY/PHOSPHO 250 ML IV SCH (22:58)
[2022-05-10] MEDS: METOPROLOL TARTRATE 5 MG/5 ML VIAL IVPUSH SCH ×7 (01:29→23:35)
[2022-05-10] MEDS: PIPERACILLIN/TAZOB 3.375 GM 3.375 GM in DEXTROSE 5%-WATER - 50 ML IVPB SCH ×2 (01:42→10:31)
[2022-05-10] MEDS: ACETAMINOPHEN 1000 MG/100 ML BAG IVPB PRN (04:13)
[2022-05-10] MEDS: ENALAPRILAT DIHYDRATE 1.25 MG/1 ML VIAL IVPB SCH ×4 (06:14→23:36)
[2022-05-10] MEDS: ENOXAPARIN NA (PORCINE) 80 MG/0.8 ML DISP.SYRIN SQ SCH (08:13)
[2022-05-10] MEDS ORDERED: ENOXAPARIN NA (PORCINE) 80 MG/0.8 ML DISP.SYRIN SQ SCH (09:00)
[2022-05-10] MEDS: PANTOPRAZOLE SODIUM 40 MG VIAL IVPUSH SCH (10:31)
[2022-05-10 17:14] LABS: EPI CELLS >36 /uL (0-25.1); HYALINE CASTS 4 /uL (0-3.1); PH,URINE 5.5 (5.0-8.0); URINE APPEARANCE CLEAR; URINE BACTERIA 56 /uL (0-1359); URINE BILIRUBIN NEGATIVE (NEGATIVE); URINE COLOR YELLOW; URINE GLUCOSE (UA) NEGATIVE (NEGATIVE); URINE KETONE TRACE (NEGATIVE); URINE LEUK ESTERASE NEGATIVE (NEGATIVE); URINE NITRITE NEGATIVE (NEGATIVE); URINE PROTEIN 2+ (NEGATIVE); URINE RBC 123 /uL (0-23.9); URINE WBC 20 /uL (0-25.8)
[2022-05-11] MEDS: METOPROLOL TARTRATE 5 MG/5 ML VIAL IVPUSH SCH ×5 (04:00→20:41)
[2022-05-11] MEDS: ENALAPRILAT DIHYDRATE 1.25 MG/1 ML VIAL IVPB SCH (04:39)
[2022-05-11] MEDS: PANTOPRAZOLE SODIUM 40 MG VIAL IVPUSH SCH (09:40)
[2022-05-11 09:49] LABS: EOS % 3.2 % (0-4.5); HEMATOCRIT 36.4 % (35.4-49); HEMOGLOBIN 11.7 GM/dL (11.7-16.9); LYMPH % 27.9 % (8-40); MCH 23.7 pg (25.7-33.7); MCHC 32.2 g/dl (32.0-35.9); MEAN CELL VOLUME 73.6 fl (80-96); MEAN PLT VOLUME 11.6 fl (7.5-11.1); NEUT % 54.9 % (42.8-82.8); PLATELET COUNT 302 10^3/uL (134-434); RBC 4.94 M/mm3 (4.00-5.60); RDW 16.2 % (11.9-15.9); WHITE BLOOD COUNT 8.1 K/mm3 (4.0-10.0)
[2022-05-11 10:32] LABS: ALBUMIN 2.4 g/dl (3.4-5.0); BLOOD UREA NITROGEN 19.5 mg/dL (7-18); CALCIUM 8.8 mg/dL (8.5-10.1)
[2022-05-11 10:35] LABS: PHOSPHOROUS 3.3 mg/dL (2.5-4.9); TOT PROT 5.8 g/dl (6.4-8.2)
[2022-05-11 10:39] LABS: BILIRUBIN,TOTAL 0.3 mg/dL (0.2-1)
[2022-05-11] MEDS: ENOXAPARIN NA (PORCINE) 80 MG/0.8 ML DISP.SYRIN SQ SCH ×2 (12:13→23:45)
[2022-05-12] MEDS: METOPROLOL TARTRATE 5 MG/5 ML VIAL IVPUSH SCH ×7 (00:46→23:57)
[2022-05-12 08:31] LABS: BASO % 0.2 % (0-2.0); EOS % 1.9 % (0-4.5); HEMATOCRIT 36.7 % (35.4-49); HEMOGLOBIN 11.8 GM/dL (11.7-16.9); LYMPH % 20.5 % (8-40); MCH 23.9 pg (25.7-33.7); MCHC 32.3 g/dl (32.0-35.9); MEAN CELL VOLUME 73.9 fl (80-96); MEAN PLT VOLUME 10.8 fl (7.5-11.1); MONO % 10.5 % (3.8-10.2); NEUT % 66.9 % (42.8-82.8); PLATELET COUNT 281 10^3/uL (134-434); RBC 4.96 M/mm3 (4.00-5.60); RDW 16.1 % (11.9-15.9); WHITE BLOOD COUNT 9.6 K/mm3 (4.0-10.0)
[2022-05-12 09:18] LABS: ALBUMIN 2.5 g/dl (3.4-5.0)
[2022-05-12 09:19] LABS: BILIRUBIN,TOTAL 0.5 mg/dL (0.2-1); BLOOD UREA NITROGEN 20.8 mg/dL (7-18)
[2022-05-12 09:21] LABS: CREATININE 1.1 mg/dL (0.55-1.3)
[2022-05-12] MEDS: PANTOPRAZOLE SODIUM 40 MG VIAL IVPUSH SCH (09:39)
[2022-05-12] MEDS: ACETAMINOPHEN 1000 MG/100 ML BAG IVPB PRN (09:39)
[2022-05-12] MEDS: ENOXAPARIN NA (PORCINE) 80 MG/0.8 ML DISP.SYRIN SQ SCH (12:39)
[2022-05-12] MEDS: AMINO ACIDS 4.25%/D5W 1,000 ML IV SCH (12:41)
[2022-05-13] MEDS: ENOXAPARIN NA (PORCINE) 80 MG/0.8 ML DISP.SYRIN SQ SCH ×2 (00:01→11:47)
[2022-05-13] MEDS: AMINO ACIDS 4.25%/D5W 1,000 ML IV SCH ×3 (03:24→17:15)
[2022-05-13] MEDS: METOPROLOL TARTRATE 5 MG/5 ML VIAL IVPUSH SCH ×5 (04:00→20:40)
[2022-05-13] MEDS: PANTOPRAZOLE SODIUM 40 MG VIAL IVPUSH SCH (10:09)
[2022-05-14] MEDS: ENOXAPARIN NA (PORCINE) 80 MG/0.8 ML DISP.SYRIN SQ SCH ×2 (00:30→12:07)
[2022-05-14] MEDS: METOPROLOL TARTRATE 5 MG/5 ML VIAL IVPUSH SCH ×6 (00:33→20:57)
[2022-05-14] MEDS: AMINO ACIDS 4.25%/D5W 1,000 ML IV SCH ×4 (05:49→20:56)
[2022-05-14] MEDS: PANTOPRAZOLE SODIUM 40 MG VIAL IVPUSH SCH (09:26)
[2022-05-14] MEDS: ACETAMINOPHEN 1000 MG/100 ML BAG IVPB PRN (20:58)
[2022-05-15] MEDS: AMINO ACIDS 4.25%/D5W 1,000 ML IV SCH ×2 (00:19→10:34)
[2022-05-15] MEDS: METOPROLOL TARTRATE 5 MG/5 ML VIAL IVPUSH SCH ×4 (00:20→12:05)
[2022-05-15] MEDS: ENOXAPARIN NA (PORCINE) 80 MG/0.8 ML DISP.SYRIN SQ SCH ×3 (00:20→22:56)
[2022-05-15] MEDS: PANTOPRAZOLE SODIUM 40 MG VIAL IVPUSH SCH (09:16)
[2022-05-15] MEDS ORDERED: ACETAMINOPHEN 1000 MG/100 ML BAG IVPB PRN (19:26)
[2022-05-15] MEDS: METOPROLOL TARTRATE 25 MG TABLET (FP) PEG SCH (22:11)
[2022-05-16] MEDS: METOPROLOL TARTRATE 25 MG TABLET (FP) PEG SCH ×3 (10:37→22:11)
[2022-05-16] MEDS: PANTOPRAZOLE SODIUM 40 MG VIAL IVPUSH SCH (10:37)
[2022-05-16] MEDS: ENOXAPARIN NA (PORCINE) 80 MG/0.8 ML DISP.SYRIN SQ SCH ×2 (13:23→23:59)
[2022-05-16] MEDS ORDERED: METOPROLOL TARTRATE 25 MG TABLET (FP) PEG ONE (15:00)
[2022-05-16] MEDS: ACETAMINOPHEN 650 MG/20.3 ML ORAL SOLUTION (CUPS) PEG SCH (21:55)
[2022-05-17] MEDS: PANTOPRAZOLE SODIUM 40 MG VIAL IVPUSH SCH (10:07)
[2022-05-17] MEDS: ACETAMINOPHEN 650 MG/20.3 ML ORAL SOLUTION (CUPS) PEG SCH ×2 (10:07→21:17)
[2022-05-17] MEDS: SACUBITRIL/VALSARTAN 24 MG-26 MG TABLET PO SCH ×2 (10:07→21:18)
[2022-05-17] MEDS: METOPROLOL TARTRATE 25 MG TABLET (FP) PEG SCH ×2 (10:07→21:18)
[2022-05-17 12:12] LABS: BASO % 1.4 % (0-2.0); EOS % 1.4 % (0-4.5); HEMATOCRIT 38.5 % (35.4-49); HEMOGLOBIN 12.4 GM/dL (11.7-16.9); MCH 23.9 pg (25.7-33.7); MCHC 32.2 g/dl (32.0-35.9); MEAN CELL VOLUME 74.2 fl (80-96); MEAN PLT VOLUME 10.8 fl (7.5-11.1); MONO % 13.5 % (3.8-10.2); NEUT % 55.7 % (42.8-82.8); PLATELET COUNT 291 10^3/uL (134-434); RBC 5.19 M/mm3 (4.00-5.60); WHITE BLOOD COUNT 8.5 K/mm3 (4.0-10.0)
[2022-05-17 12:26] LABS: CALCIUM 8.8 mg/dL (8.5-10.1)
[2022-05-17 12:27] LABS: ALBUMIN 2.6 g/dl (3.4-5.0); BLOOD UREA NITROGEN 22.7 mg/dL (7-18)
[2022-05-17 12:28] LABS: CREATININE 1.2 mg/dL (0.55-1.3)
[2022-05-17 12:30] LABS: BILIRUBIN,TOTAL 0.4 mg/dL (0.2-1); TOT PROT 5.9 g/dl (6.4-8.2)
[2022-05-17] MEDS: ENOXAPARIN NA (PORCINE) 80 MG/0.8 ML DISP.SYRIN SQ SCH (12:53)
[2022-05-18] MEDS: ENOXAPARIN NA (PORCINE) 80 MG/0.8 ML DISP.SYRIN SQ SCH (01:03)
[2022-05-18] MEDS: SPIRONOLACTONE 25 MG TABLET PO SCH (10:00)
[2022-05-18] MEDS: METOPROLOL TARTRATE 25 MG TABLET (FP) PEG SCH ×2 (10:00→21:45)
[2022-05-18] MEDS: SACUBITRIL/VALSARTAN 24 MG-26 MG TABLET PO SCH ×2 (10:01→21:44)
[2022-05-18] MEDS: PANTOPRAZOLE SODIUM 40 MG VIAL IVPUSH SCH (11:39)
[2022-05-19] MEDS: APIXABAN 5 MG TABLET PO SCH ×2 (10:44→21:33)
[2022-05-19] MEDS: SPIRONOLACTONE 25 MG TABLET PO SCH (10:45)
[2022-05-19] MEDS: SACUBITRIL/VALSARTAN 24 MG-26 MG TABLET PO SCH ×2 (10:45→22:10)
[2022-05-19] MEDS: METOPROLOL TARTRATE 25 MG TABLET (FP) PEG SCH ×2 (10:46→21:40)
[2022-05-19] MEDS: PANTOPRAZOLE SODIUM 40 MG VIAL IVPUSH SCH (10:46)
[2022-05-20] MEDS: METOPROLOL TARTRATE 25 MG TABLET (FP) PEG SCH ×2 (10:40→21:59)
[2022-05-20] MEDS: APIXABAN 5 MG TABLET PO SCH (10:40)
[2022-05-20] MEDS: SPIRONOLACTONE 25 MG TABLET PO SCH (10:40)
[2022-05-20] MEDS: SACUBITRIL/VALSARTAN 24 MG-26 MG TABLET PO SCH ×2 (10:40→21:59)
[2022-05-20 11:03] LABS: ALBUMIN 2.6 g/dl (3.4-5.0); BLOOD UREA NITROGEN 22.4 mg/dL (7-18); CALCIUM 8.8 mg/dL (8.5-10.1)
[2022-05-20 11:08] LABS: BILIRUBIN,TOTAL 0.4 mg/dL (0.2-1); TOT PROT 6.1 g/dl (6.4-8.2)
[2022-05-20] MEDS: PANTOPRAZOLE SODIUM 40 MG VIAL IVPUSH SCH (15:11)
[2022-05-20] MEDS: APIXABAN 5 MG TABLET PEG SCH (21:59)
[2022-05-20] MEDS: ATORVASTATIN CA 20 MG TABLET (FP) PEG SCH (22:01)
[2022-05-21] MEDS: ACETAMINOPHEN 650 MG/20.3 ML ORAL SOLUTION (CUPS) PEG PRN (06:38)
[2022-05-21 08:42] LABS: EPI CELLS 5 /uL (0-25.1); HYALINE CASTS 3 /uL (0-3.1); URINE APPEARANCE CLOUDY; URINE BACTERIA >9,000 /uL (0-1359); URINE BILIRUBIN NEGATIVE (NEGATIVE); URINE COLOR YELLOW; URINE GLUCOSE (UA) NEGATIVE (NEGATIVE); URINE KETONE TRACE (NEGATIVE); URINE LEUK ESTERASE NEGATIVE (NEGATIVE); URINE NITRITE NEGATIVE (NEGATIVE); URINE PROTEIN 3+ (NEGATIVE); URINE RBC 73 /uL (0-23.9); URINE UROBILINOGEN 4.0 E.U/dl mg/dL (0.2-1.0)
[2022-05-21] MEDS: SPIRONOLACTONE 25 MG TABLET PO SCH (09:22)
[2022-05-21] MEDS: METOPROLOL TARTRATE 25 MG TABLET (FP) PEG SCH ×2 (09:22→21:21)
[2022-05-21] MEDS: SACUBITRIL/VALSARTAN 24 MG-26 MG TABLET PO SCH ×2 (09:22→21:21)
[2022-05-21] MEDS: APIXABAN 5 MG TABLET PEG SCH ×2 (09:22→21:21)
[2022-05-21 10:09] LABS: BASO % 0.4 % (0-2.0); EOS % 0.7 % (0-4.5); HEMATOCRIT 37.9 % (35.4-49); HEMOGLOBIN 12.4 GM/dL (11.7-16.9); LYMPH % 19.1 % (8-40); MCHC 32.6 g/dl (32.0-35.9); MEAN CELL VOLUME 73.5 fl (80-96); MEAN PLT VOLUME 10.6 fl (7.5-11.1); MONO % 12.7 % (3.8-10.2); NEUT % 67.1 % (42.8-82.8); PLATELET COUNT 215 10^3/uL (134-434); RBC 5.16 M/mm3 (4.00-5.60); WHITE BLOOD COUNT 11.3 K/mm3 (4.0-10.0)
[2022-05-21 10:30] LABS: CALCIUM 8.8 mg/dL (8.5-10.1)
[2022-05-21 10:31] LABS: ALBUMIN 2.5 g/dl (3.4-5.0); BLOOD UREA NITROGEN 23.9 mg/dL (7-18)
[2022-05-21 10:34] LABS: CREATININE 1.1 mg/dL (0.55-1.3)
[2022-05-21 10:35] LABS: BILIRUBIN,TOTAL 0.4 mg/dL (0.2-1)
[2022-05-21] MEDS ORDERED: SODIUM CHLORIDE 0.45% 1,000 ML IV SCH (13:00)
[2022-05-21] MEDS: FAMOTIDINE 40 MG/5 ML ORAL SUSPENSION PEG SCH (21:20)
[2022-05-21] MEDS: ATORVASTATIN CA 20 MG TABLET (FP) PEG SCH (21:21)
[2022-05-22] MEDS: SPIRONOLACTONE 25 MG TABLET PO SCH ×2 (10:13→10:15)
[2022-05-22] MEDS: SACUBITRIL/VALSARTAN 24 MG-26 MG TABLET PO SCH ×3 (10:14→22:37)
[2022-05-22] MEDS: METOPROLOL TARTRATE 25 MG TABLET (FP) PEG SCH ×2 (10:15→22:37)
[2022-05-22] MEDS: APIXABAN 5 MG TABLET PEG SCH ×2 (10:15→22:37)
[2022-05-22] MEDS: FAMOTIDINE 40 MG/5 ML ORAL SUSPENSION PEG SCH ×2 (10:16→22:38)
[2022-05-22 11:20] LABS: BASO % 0.5 % (0-2.0); EOS % 2.1 % (0-4.5); HEMATOCRIT 39.3 % (35.4-49); HEMOGLOBIN 12.7 GM/dL (11.7-16.9); LYMPH % 23.1 % (8-40); MCH 23.9 pg (25.7-33.7); MCHC 32.4 g/dl (32.0-35.9); MEAN CELL VOLUME 73.5 fl (80-96); MEAN PLT VOLUME 10.8 fl (7.5-11.1); MONO % 10.4 % (3.8-10.2); NEUT % 63.9 % (42.8-82.8); PLATELET COUNT 219 10^3/uL (134-434); RBC 5.34 M/mm3 (4.00-5.60); RDW 17.5 % (11.9-15.9); WHITE BLOOD COUNT 9.9 K/mm3 (4.0-10.0)
[2022-05-22 11:46] LABS: ALBUMIN 2.6 g/dl (3.4-5.0); CALCIUM 8.6 mg/dL (8.5-10.1)
[2022-05-22 11:47] LABS: BLOOD UREA NITROGEN 23.6 mg/dL (7-18)
[2022-05-22 11:51] LABS: BILIRUBIN,TOTAL 0.4 mg/dL (0.2-1); TOT PROT 5.8 g/dl (6.4-8.2)
[2022-05-22] MEDS: CEFTRIAXONE 1 GM in DEXTROSE 5%-WATER - 50 ML IVPB SCH (13:11)
[2022-05-22] MEDS: ATORVASTATIN CA 20 MG TABLET (FP) PEG SCH (22:37)
[2022-05-23] MEDS: CEFTRIAXONE 1 GM in DEXTROSE 5%-WATER - 50 ML IVPB SCH (09:24)
[2022-05-23] MEDS: SACUBITRIL/VALSARTAN 24 MG-26 MG TABLET PEG SCH ×2 (09:28→22:38)
[2022-05-23] MEDS: METOPROLOL TARTRATE 25 MG TABLET (FP) PEG SCH ×2 (09:28→22:38)
[2022-05-23] MEDS: SPIRONOLACTONE 25 MG TABLET PEG SCH (09:28)
[2022-05-23] MEDS: FAMOTIDINE 40 MG/5 ML ORAL SUSPENSION PEG SCH ×2 (09:28→22:47)
[2022-05-23] MEDS: APIXABAN 5 MG TABLET PEG SCH ×2 (09:28→22:38)
[2022-05-23] MEDS: ATORVASTATIN CA 20 MG TABLET (FP) PEG SCH (22:38)
[2022-05-24] MEDS: SACUBITRIL/VALSARTAN 24 MG-26 MG TABLET PEG SCH (10:52)
[2022-05-24] MEDS: APIXABAN 5 MG TABLET PEG SCH (10:52)
[2022-05-24] MEDS: SPIRONOLACTONE 25 MG TABLET PEG SCH (10:52)
[2022-05-24] MEDS: METOPROLOL TARTRATE 25 MG TABLET (FP) PEG SCH (10:52)
[2022-05-24] MEDS: CEFTRIAXONE 1 GM in DEXTROSE 5%-WATER - 50 ML IVPB SCH (10:55)
[2022-05-24] MEDS: FAMOTIDINE 40 MG/5 ML ORAL SUSPENSION PEG SCH (11:35)
[2022-05-25] MEDS: SACUBITRIL/VALSARTAN 24 MG-26 MG TABLET PEG SCH ×3 (02:00→22:32)
[2022-05-25] MEDS: ATORVASTATIN CA 20 MG TABLET (FP) PEG SCH ×2 (02:00→22:33)
[2022-05-25] MEDS: APIXABAN 5 MG TABLET PEG SCH ×3 (02:00→22:32)
[2022-05-25] MEDS: FAMOTIDINE 40 MG/5 ML ORAL SUSPENSION PEG SCH ×3 (02:00→22:33)
[2022-05-25] MEDS: METOPROLOL TARTRATE 25 MG TABLET (FP) PEG SCH ×3 (03:34→22:33)
[2022-05-25] MEDS: CEFTRIAXONE 1 GM in DEXTROSE 5%-WATER - 50 ML IVPB SCH (09:09)
[2022-05-25] MEDS: SPIRONOLACTONE 25 MG TABLET PEG SCH (09:11)
[2022-05-25 10:19] LABS: ALBUMIN 2.7 g/dl (3.4-5.0); BLOOD UREA NITROGEN 24.7 mg/dL (7-18); CALCIUM 9.1 mg/dL (8.5-10.1)
[2022-05-25 10:22] LABS: CREATININE 1.1 mg/dL (0.55-1.3)
[2022-05-25 10:24] LABS: BILIRUBIN,TOTAL 0.4 mg/dL (0.2-1); TOT PROT 6.2 g/dl (6.4-8.2)
[2022-05-25] MEDS ORDERED: AMOX TR/POTASSIUM CLAVULANATE 400 MG/5 ML BOTTLE PO SCH (17:30)
[2022-05-26] MEDS: AMOX TR/POTASSIUM CLAVULANATE 400 MG/5 ML BOTTLE PEG SCH ×2 (08:24→17:29)
[2022-05-26] MEDS: SPIRONOLACTONE 25 MG TABLET PEG SCH (10:24)
[2022-05-26] MEDS: METOPROLOL TARTRATE 25 MG TABLET (FP) PEG SCH ×2 (10:24→21:12)
[2022-05-26] MEDS: SACUBITRIL/VALSARTAN 24 MG-26 MG TABLET PEG SCH ×2 (10:25→21:12)
[2022-05-26] MEDS: APIXABAN 5 MG TABLET PEG SCH ×2 (10:25→21:12)
[2022-05-26] MEDS: FAMOTIDINE 40 MG/5 ML ORAL SUSPENSION PEG SCH ×2 (10:28→21:12)
[2022-05-26] MEDS: ATORVASTATIN CA 20 MG TABLET (FP) PEG SCH (21:12)
[2022-05-27] MEDS: AMOX TR/POTASSIUM CLAVULANATE 400 MG/5 ML BOTTLE PEG SCH ×2 (08:42→17:44)
[2022-05-27] MEDS: SPIRONOLACTONE 25 MG TABLET PEG SCH (09:52)
[2022-05-27] MEDS: APIXABAN 5 MG TABLET PEG SCH ×2 (09:53→22:11)
[2022-05-27] MEDS: SACUBITRIL/VALSARTAN 24 MG-26 MG TABLET PEG SCH ×2 (09:53→22:12)
[2022-05-27] MEDS: METOPROLOL TARTRATE 25 MG TABLET (FP) PEG SCH ×2 (09:53→22:11)
[2022-05-27] MEDS: FAMOTIDINE 40 MG/5 ML ORAL SUSPENSION PEG SCH ×2 (09:54→22:11)
[2022-05-27] MEDS: ATORVASTATIN CA 20 MG TABLET (FP) PEG SCH (22:11)
[2022-05-27] MEDS: ACETAMINOPHEN 650 MG/20.3 ML ORAL SOLUTION (CUPS) PEG PRN (22:14)
[2022-05-28] MEDS: AMOX TR/POTASSIUM CLAVULANATE 400 MG/5 ML BOTTLE PEG SCH ×2 (08:00→18:02)
[2022-05-28] MEDS: SACUBITRIL/VALSARTAN 24 MG-26 MG TABLET PEG SCH (09:57)
[2022-05-28] MEDS: SPIRONOLACTONE 25 MG TABLET PEG SCH (09:57)
[2022-05-28] MEDS: APIXABAN 5 MG TABLET PEG SCH (09:57)
[2022-05-28] MEDS: METOPROLOL TARTRATE 25 MG TABLET (FP) PEG SCH (09:57)
[2022-05-28] MEDS: FAMOTIDINE 40 MG/5 ML ORAL SUSPENSION PEG SCH (09:58)
[2022-05-28 10:22] VITALS: RESP 18
[2022-05-28] MEDS ORDERED: METOPROLOL TARTRATE 5 MG/5 ML VIAL IVPUSH PRN (17:48)
[2022-05-28] MEDS ORDERED: METOPROLOL TARTRATE 25 MG TABLET (FP) GT PRN (18:05)
[2022-05-28] MEDS ORDERED: METOPROLOL TARTRATE 25 MG TABLET (FP) PEG PRN (18:10)
[2022-05-29] MEDS: FAMOTIDINE 40 MG/5 ML ORAL SUSPENSION PEG SCH ×2 (01:27→10:15)
[2022-05-29] MEDS: METOPROLOL TARTRATE 25 MG TABLET (FP) PEG SCH ×2 (01:27→10:15)
[2022-05-29] MEDS: APIXABAN 5 MG TABLET PEG SCH ×2 (01:30→10:15)
[2022-05-29] MEDS: ATORVASTATIN CA 20 MG TABLET (FP) PEG SCH (01:30)
[2022-05-29] MEDS: SACUBITRIL/VALSARTAN 24 MG-26 MG TABLET PEG SCH ×2 (01:45→10:15)
[2022-05-29] MEDS: AMOX TR/POTASSIUM CLAVULANATE 400 MG/5 ML BOTTLE PEG SCH (08:15)
[2022-05-29 09:44] LABS: HEMATOCRIT 44.7 % (35.4-49); HEMOGLOBIN 14.7 GM/dL (11.7-16.9); MCHC 32.9 g/dl (32.0-35.9); MEAN CELL VOLUME 73.1 fl (80-96); MEAN PLT VOLUME 10.4 fl (7.5-11.1); PLATELET COUNT 269 10^3/uL (134-434); RBC 6.12 M/mm3 (4.00-5.60); RDW 17.9 % (11.9-15.9)
[2022-05-29 10:05] LABS: CHLORIDE 106 mmol/L (98-107); SODIUM 135 mmol/L (136-145)
[2022-05-29 10:13] LABS: ALBUMIN 2.9 g/dl (3.4-5.0); BLOOD UREA NITROGEN 22.4 mg/dL (7-18); CALCIUM 9.4 mg/dL (8.5-10.1); CO2 22 mmol/L (21-32); GLUCOSE,RANDOM 122 mg/dL (74-106)
[2022-05-29] MEDS: SPIRONOLACTONE 25 MG TABLET PEG SCH (10:15)
[2022-05-29 10:17] LABS: BILIRUBIN,TOTAL 0.7 mg/dL (0.2-1); CREATININE 1.1 mg/dL (0.55-1.3); SGOT/AST 51 U/L (15-37); SGPT/ALT 38 U/L (13-61)
[2022-05-29 10:19] LABS: ALK PHOS 75 U/L (45-117); TOT PROT 6.6 g/dl (6.4-8.2)
[2022-05-29 10:20] LABS: ANION GAP 8 MMOL/L (8-16)
[2022-05-29 10:32] LABS: ANISOCYTOSIS 2+; MACROCYTOSIS 0; TARGET CELLS 1+
[2022-05-29 12:53] LABS: BLOOD UREA NITROGEN 21.5 mg/dL (7-18); CALCIUM 9.5 mg/dL (8.5-10.1)
[2022-05-29 12:57] LABS: CREATININE 1.3 mg/dL (0.55-1.3)
[2022-05-29 13:23] VITALS: BP 109/75; PULSE 78; TEMP 97.6
== END 2022-05-29 15:45 | DRG 65 ==
LOC: JER 07:53 → JERBED 11:26 → J4W 04-27 15:21 → J6S 05-15 15:34
PROVIDERS: ADMIT Internal Medicine; ATTEND Internal Medicine
PROC: 0DH63UZ Insertion of Feeding Device into Stomach, Percutaneous Approach (ICD-10-PCS; principal; 2022-05-08)
PROC: BD12ZZZ Fluoroscopy of Stomach (ICD-10-PCS; 2022-05-08)
PROC: 3E0G76Z Introduction of Nutritional Substance into Upper GI, Via Natural or Artificial Opening (ICD-10-PCS; 2022-05-08)
DX: I63.9 Cerebral infarction, unspecified (principal); E87.0 Hyperosmolality and hypernatremia; G81.91 Hemiplegia, unspecified affecting right dominant side; I50.22 Chronic systolic (congestive) heart failure; I48.92 Unspecified atrial flutter; N17.9 Acute kidney failure, unspecified; I24.8 Other forms of acute ischemic heart disease; N39.0 Urinary tract infection, site not specified; I48.91 Unspecified atrial fibrillation; E11.9 Type 2 diabetes mellitus without complications; I11.0 Hypertensive heart disease with heart failure; R29.725 NIHSS score 25; K59.00 Constipation, unspecified; R29.810 Facial weakness; D72.829 Elevated white blood cell count, unspecified; E83.39 Other disorders of phosphorus metabolism; R80.9 Proteinuria, unspecified; N28.1 Cyst of kidney, acquired; N40.0 Benign prostatic hyperplasia without lower urinary tract symptoms; N20.0 Calculus of kidney; R47.01 Aphasia; F41.8 Other specified anxiety disorders; R77.8 Other specified abnormalities of plasma proteins; K31.84 Gastroparesis; R31.0 Gross hematuria; E87.5 Hyperkalemia; B96.20 Unspecified Escherichia coli [E. coli] as the cause of diseases classified elsewhere; B95.2 Enterococcus as the cause of diseases classified elsewhere; B96.1 Klebsiella pneumoniae [K. pneumoniae] as the cause of diseases classified elsewhere; Z95.810 Presence of automatic (implantable) cardiac defibrillator
CPT/HCPCS: 0241U-QW; 36415; 49440; 70450-TC; 70496-TC; 70498-TC; 71045-TC-FY; 74018-TC-FY; 74019-TC-FY; 76775-TC; 76856-TC; 80048; 80053; 80061; 81003; 82550; 82553; 82962; 83036; 83735; 83880; 84100; 84484; 85025; 85610; 85730; 86850; 86900; 86901; 87040; 87086; 87186; 93005; 93010; 93306-TC; 93880-TC; 97116-GP; 97162-GP; 99285-25; C9803-CS; Q9967; U0003; U0005